=== PATIENT | male | born 1940 | race Caucasian/White ===

== ENCOUNTER 2022-09-19 15:04 | Inpatient (IN) | payer MEDICARE ==
[~2022-09-19] VITALS: Ht 172.7 cm; Wt 59.0 kg
[2022-09-19 16:47] LABS: BASO % 0.3 % (0.0-1.0); EOS % 0.1 % (0.0-3.0); LYMPH # 0.4 10^3/uL (1.5-5.0); LYMPH % 5.5 % (24.0-44.0); MEAN CORPUSCULAR HEMOGLOBIN 27.5 pg (27.0-33.0); MEAN CORPUSCULAR HGB CONC 31.1 g/dl (32.0-36.5); MEAN CORPUSCULAR VOLUME 88.3 fl (80.0-96.0); MONO # 0.7 10^3/uL (0.0-0.8); NEUTROPHILS # 6.8 10^3/uL (1.5-8.5); NEUTROPHILS % 84.7 % (36.0-66.0); PLATELET COUNT, AUTOMATED 260 10^3/uL (150-450); RED BLOOD COUNT 1.71 10^6/uL (4.30-6.10)
[2022-09-19 16:49] LABS: HEMATOCRIT 15.1 % (42.0-52.0); HEMOGLOBIN 4.7 g/dl (13.5-17.5)
[2022-09-19] MEDS ORDERED: PANTOPRAZOLE 40MG VIAL IV ONE (17:50)
[2022-09-19 18:09] LABS: ALBUMIN 2.8 G/DL (3.2-5.2); BILIRUBIN,DIRECT 0.2 MG/DL (<0.4); BILIRUBIN,TOTAL 0.6 MG/DL (0.3-1.2); CALCIUM LEVEL 8.2 MG/DL (8.3-10.6); CK-MB VALUE MASS 4.1 NG/ML (<3.6); CREATININE FOR GFR 2.07 MG/DL (0.70-1.30); GLOMERULAR FILTRATION RATE 33.1 (>35); MB/CK RELATIVE INDEX 1.79 (< OR =4); POTASSIUM SERUM 4.3 MMOL/L (3.5-5.1); THYROID STIMULATING HORMONE 4.005 uIU/ML (0.55-4.78); TOTAL PROTEIN 5.1 G/DL (5.7-8.2)
[2022-09-19 19:22] LABS: PARTIAL THROMBOPLASTIN TIME 26.4 SECONDS (24.8-34.2); PROTHROMBIN TIME 13.4 SECONDS (12.5-14.5)
[2022-09-19 19:32] LABS: CK-MB VALUE MASS 3.7 NG/ML (<3.6)
[2022-09-19 19:34] LABS: MB/CK RELATIVE INDEX 1.67 (< OR =4)
[2022-09-19 20:51] LABS: RSV AMPLIFICATION NEGATIVE (NEGATIVE)
[2022-09-19 21:00] VITALS: BP 132/64
[2022-09-19 21:15] VITALS: BP 126/76
[2022-09-19] MEDS ORDERED: LEVO50TA5 PO (21:17)
[2022-09-19] MEDS ORDERED: HYDR10TAB PO (21:17)
[2022-09-19] MEDS ORDERED: ATOR1TAB19 PO (21:19)
[2022-09-19] MEDS ORDERED: POTA10CA33 PO (21:19)
[2022-09-19] MEDS ORDERED: AMLO1TAB24 PO (21:19)
[2022-09-19] MEDS ORDERED: HOME MED LIST COMPLETE! XX SCH (21:20)
[2022-09-19 22:15] VITALS: BP 154/70
[2022-09-19] MEDS: NS 1,000 ML IV SCH (22:55)
[2022-09-19] MEDS: ATORVASTATIN 20 MG TAB PO SCH (22:55)
[2022-09-19] MEDS ORDERED: SODIUM CHLORIDE 0.9% 500 ML IV ONE (22:55)
[2022-09-20] VITALS (13 sets, daily range): BP systolic 109–150; BP diastolic 56–69
[2022-09-20 05:30] LABS: HEMATOCRIT 22.5 % (42.0-52.0)
[2022-09-20 05:34] LABS: HEMOGLOBIN 7.3 g/dl (13.5-17.5)
[2022-09-20 05:47] LABS: CALCIUM LEVEL 7.8 MG/DL (8.3-10.6); CREATININE FOR GFR 1.86 MG/DL (0.70-1.30); GLOMERULAR FILTRATION RATE 37.4 (>35); POTASSIUM SERUM 3.9 MMOL/L (3.5-5.1)
[2022-09-20 07:00] LABS: HEMATOCRIT 22.5 % (42.0-52.0); HEMOGLOBIN 7.5 g/dl (13.5-17.5)
[2022-09-20] MEDS: NS 1,000 ML IV SCH ×3 (09:29→21:30)
[2022-09-20] MEDS: PANTOPRAZOLE 40MG VIAL IV SCH ×2 (09:30→21:30)
[2022-09-20 13:02] LABS: HEMATOCRIT 25.6 % (42.0-52.0); HEMOGLOBIN 8.6 g/dl (13.5-17.5)
[2022-09-20] MEDS ORDERED: GOLYTELY SOLN 4000 ML BTL PO ONE (16:00)
[2022-09-20 16:41] LABS: HEMATOCRIT 25.8 % (42.0-52.0); HEMOGLOBIN 8.7 g/dl (13.5-17.5)
[2022-09-20] MEDS: ATORVASTATIN 20 MG TAB PO SCH (21:30)
[2022-09-20 22:14] LABS: HEMATOCRIT 26.7 % (42.0-52.0); HEMOGLOBIN 8.9 g/dl (13.5-17.5)
[2022-09-21] VITALS (9 sets, daily range): BP systolic 131–189; BP diastolic 63–86
[2022-09-21] MEDS ORDERED: GOLYTELY SOLN 4000 ML BTL PO SCH (03:00)
[2022-09-21 06:26] LABS: BASO # 0.1 10^3/uL (0.0-0.2); BASO % 0.7 % (0.0-1.0); EOS # 0.2 10^3/uL (0.0-0.5); EOS % 2.9 % (0.0-3.0); HEMATOCRIT 27.3 % (42.0-52.0); HEMOGLOBIN 9.1 g/dl (13.5-17.5); LYMPH # 0.5 10^3/uL (1.5-5.0); LYMPH % 6.5 % (24.0-44.0); MEAN CORPUSCULAR HEMOGLOBIN 29.4 pg (27.0-33.0); MEAN CORPUSCULAR HGB CONC 33.3 g/dl (32.0-36.5); MEAN CORPUSCULAR VOLUME 88.3 fl (80.0-96.0); MONO # 0.7 10^3/uL (0.0-0.8); MONO % 8.8 % (2.0-8.0); NEUTROPHILS # 6.6 10^3/uL (1.5-8.5); NEUTROPHILS % 80.7 % (36.0-66.0); PLATELET COUNT, AUTOMATED 250 10^3/uL (150-450); RED BLOOD COUNT 3.09 10^6/uL (4.30-6.10); WHITE BLOOD COUNT 8.2 10^3/uL (4.0-10.0)
[2022-09-21 06:49] LABS: ALBUMIN 2.5 G/DL (3.2-5.2); CALCIUM LEVEL 7.1 MG/DL (8.3-10.6); CREATININE FOR GFR 1.7 MG/DL (0.70-1.30); GLOMERULAR FILTRATION RATE 41.5 (>35); POTASSIUM SERUM 3.8 MMOL/L (3.5-5.1)
[2022-09-21] MEDS: PANTOPRAZOLE 40MG VIAL IV SCH ×2 (08:50→20:08)
[2022-09-21] MEDS ORDERED: amLODIPine 5 MG TAB PO SCH (09:00)
[2022-09-21] MEDS: POTASSIUM CHLORIDE 10MEQ SR TABLET PO SCH (10:41)
[2022-09-21] MEDS: LEVOTHYROXINE 50MCG TABLET (0.05MG) PO SCH (10:41)
[2022-09-21 11:38] LABS: VENOUS BASE EXCESS -3.5 (-2.0-2.0); VENOUS HCO3 20.3 MEQ/L (23.0-27.0); VENOUS O2 SATURATION 96.2 % (60.0-80.0); VENOUS PARTIAL PRESSURE CO2 32.3 mmHg (38.0-50.0); VENOUS PARTIAL PRESSURE O2 82.5 mmHg (30.0-50.0); VENOUS PH 7.416 UNITS (7.330-7.430); VENOUS STANDARD HCO3 21.5 MEQ/L; VENOUS TOTAL CO2 21.3 MEQ/L (24.0-28.0)
[2022-09-21] MEDS ORDERED: ISOVUE-370 76% 100ML VIAL As Ordered ONE (11:41)
[2022-09-21 11:43] LABS: BASO # 0.1 10^3/uL (0.0-0.2); BASO % 0.8 % (0.0-1.0); EOS # 0.1 10^3/uL (0.0-0.5); EOS % 1.4 % (0.0-3.0); HEMATOCRIT 30.7 % (42.0-52.0); HEMOGLOBIN 10.2 g/dl (13.5-17.5); LYMPH # 0.5 10^3/uL (1.5-5.0); LYMPH % 6.3 % (24.0-44.0); MEAN CORPUSCULAR HEMOGLOBIN 29.1 pg (27.0-33.0); MEAN CORPUSCULAR HGB CONC 33.2 g/dl (32.0-36.5); MEAN CORPUSCULAR VOLUME 87.7 fl (80.0-96.0); MONO # 0.7 10^3/uL (0.0-0.8); MONO % 8.7 % (2.0-8.0); NEUTROPHILS # 6.3 10^3/uL (1.5-8.5); NEUTROPHILS % 82.5 % (36.0-66.0); PLATELET COUNT, AUTOMATED 280 10^3/uL (150-450); WHITE BLOOD COUNT 7.6 10^3/uL (4.0-10.0)
[2022-09-21 11:56] LABS: INR 0.95; PROTHROMBIN TIME 12.9 SECONDS (12.5-14.5)
[2022-09-21 11:57] LABS: PARTIAL THROMBOPLASTIN TIME 26.3 SECONDS (24.8-34.2)
[2022-09-21 12:17] LABS: ALBUMIN 2.7 G/DL (3.2-5.2); BILIRUBIN,TOTAL 1.3 MG/DL (0.3-1.2); CALCIUM LEVEL 7.3 MG/DL (8.3-10.6); CREATININE FOR GFR 1.59 MG/DL (0.70-1.30); GLOMERULAR FILTRATION RATE 44.8 (>35); POTASSIUM SERUM 3.8 MMOL/L (3.5-5.1)
[2022-09-21] MEDS ORDERED: **hydrALAZINE** 10 MG TAB PO SCH (16:00)
[2022-09-21] MEDS ORDERED: ASPIRIN 325 MG TAB PO ONE (16:10)
[2022-09-21 19:45] LABS: CHOLESTEROL RISK RATIO 2.95 (<5); HDL CHOLESTEROL 39.9 MG/DL (>40); LDL CHOLESTEROL 60.1 MG/DL (<100); NON-HDL-C 78.1 MG/DL
[2022-09-21] MEDS: ATORVASTATIN 20 MG TAB PO SCH (20:08)
[2022-09-21 20:58] LABS: HEMOGLOBIN A1c 4.9 % (4.0-6.0)
[2022-09-22 04:22] VITALS: BP 140/67
[2022-09-22 05:17] LABS: BASO # 0.1 10^3/uL (0.0-0.2); EOS # 0.4 10^3/uL (0.0-0.5); EOS % 5.6 % (0.0-3.0); HEMOGLOBIN 9.2 g/dl (13.5-17.5); LYMPH # 0.9 10^3/uL (1.5-5.0); LYMPH % 12.9 % (24.0-44.0); MEAN CORPUSCULAR HEMOGLOBIN 28.8 pg (27.0-33.0); MEAN CORPUSCULAR HGB CONC 32.9 g/dl (32.0-36.5); MEAN CORPUSCULAR VOLUME 87.8 fl (80.0-96.0); MONO # 0.8 10^3/uL (0.0-0.8); NEUTROPHILS # 5.1 10^3/uL (1.5-8.5); NEUTROPHILS % 69.4 % (36.0-66.0); PLATELET COUNT, AUTOMATED 281 10^3/uL (150-450); RED BLOOD COUNT 3.19 10^6/uL (4.30-6.10); WHITE BLOOD COUNT 7.3 10^3/uL (4.0-10.0)
[2022-09-22] MEDS: LEVOTHYROXINE 50MCG TABLET (0.05MG) PO SCH (05:32)
[2022-09-22 05:44] LABS: ALBUMIN 2.4 G/DL (3.2-5.2); CALCIUM LEVEL 7.1 MG/DL (8.3-10.6); CREATININE FOR GFR 1.48 MG/DL (0.70-1.30); GLOMERULAR FILTRATION RATE 48.7 (>35); PHOSPHORUS LEVEL 3.1 MG/DL (2.4-5.1); POTASSIUM SERUM 3.7 MMOL/L (3.5-5.1)
[2022-09-22 07:10] VITALS: BP 147/71
[2022-09-22] MEDS: ASPIRIN 81MG CHEW TABLET PO SCH (08:10)
[2022-09-22] MEDS: PANTOPRAZOLE 40MG VIAL IV SCH ×2 (08:11→20:14)
[2022-09-22] MEDS: POTASSIUM CHLORIDE 10MEQ SR TABLET PO SCH (08:11)
[2022-09-22 12:16] LABS: PERCENT SATURATION 3.7 % (19.7-50.0)
[2022-09-22 12:18] LABS: FOLATE 19.3 NG/ML (>5.4)
[2022-09-22 12:30] VITALS: BP 159/81
[2022-09-22 15:56] VITALS: BP 154/74
[2022-09-22 20:00] VITALS: BP 158/88
[2022-09-22] MEDS: ATORVASTATIN 20 MG TAB PO SCH (20:14)
[2022-09-23] VITALS: BP 141/63
[2022-09-23 04:00] VITALS: BP 168/77
[2022-09-23] MEDS: LEVOTHYROXINE 50MCG TABLET (0.05MG) PO SCH (05:10)
[2022-09-23 05:46] LABS: BASO # 0.1 10^3/uL (0.0-0.2); BASO % 1.2 % (0.0-1.0); EOS # 0.5 10^3/uL (0.0-0.5); EOS % 5.9 % (0.0-3.0); HEMATOCRIT 29.9 % (42.0-52.0); HEMOGLOBIN 9.6 g/dl (13.5-17.5); LYMPH # 0.7 10^3/uL (1.5-5.0); LYMPH % 8.7 % (24.0-44.0); MEAN CORPUSCULAR HEMOGLOBIN 28.4 pg (27.0-33.0); MEAN CORPUSCULAR HGB CONC 32.1 g/dl (32.0-36.5); MEAN CORPUSCULAR VOLUME 88.5 fl (80.0-96.0); MONO # 0.7 10^3/uL (0.0-0.8); NEUTROPHILS # 5.8 10^3/uL (1.5-8.5); NEUTROPHILS % 74.8 % (36.0-66.0); PLATELET COUNT, AUTOMATED 313 10^3/uL (150-450); RED BLOOD COUNT 3.38 10^6/uL (4.30-6.10); WHITE BLOOD COUNT 7.7 10^3/uL (4.0-10.0)
[2022-09-23 06:09] LABS: ALBUMIN 2.5 G/DL (3.2-5.2); CALCIUM LEVEL 7.1 MG/DL (8.3-10.6); CREATININE FOR GFR 1.46 MG/DL (0.70-1.30); GLOMERULAR FILTRATION RATE 49.5 (>35); PHOSPHORUS LEVEL 3.1 MG/DL (2.4-5.1); POTASSIUM SERUM 3.6 MMOL/L (3.5-5.1)
[2022-09-23 08:03] VITALS: BP 168/80
[2022-09-23] MEDS: PANTOPRAZOLE 40MG VIAL IV SCH ×2 (09:46→21:05)
[2022-09-23] MEDS: ASPIRIN 81MG CHEW TABLET PO SCH (09:46)
[2022-09-23] MEDS: POTASSIUM CHLORIDE 10MEQ SR TABLET PO SCH (09:46)
[2022-09-23 11:32] VITALS: BP 154/74
[2022-09-23 16:07] VITALS: BP 146/79
[2022-09-23 19:45] VITALS: BP 137/73
[2022-09-23] MEDS: ATORVASTATIN 20 MG TAB PO SCH (21:05)
[2022-09-24] VITALS (7 sets, daily range): BP systolic 129–155; BP diastolic 65–75
[2022-09-24 05:33] LABS: BASO # 0.1 10^3/uL (0.0-0.2); BASO % 0.8 % (0.0-1.0); EOS # 0.6 10^3/uL (0.0-0.5); EOS % 8.1 % (0.0-3.0); HEMATOCRIT 30.9 % (42.0-52.0); HEMOGLOBIN 9.8 g/dl (13.5-17.5); LYMPH % 12.8 % (24.0-44.0); MEAN CORPUSCULAR HEMOGLOBIN 28.1 pg (27.0-33.0); MEAN CORPUSCULAR HGB CONC 31.7 g/dl (32.0-36.5); MEAN CORPUSCULAR VOLUME 88.5 fl (80.0-96.0); MONO # 0.7 10^3/uL (0.0-0.8); MONO % 8.7 % (2.0-8.0); NEUTROPHILS # 5.2 10^3/uL (1.5-8.5); NEUTROPHILS % 69.2 % (36.0-66.0); PLATELET COUNT, AUTOMATED 338 10^3/uL (150-450); RED BLOOD COUNT 3.49 10^6/uL (4.30-6.10); WHITE BLOOD COUNT 7.5 10^3/uL (4.0-10.0)
[2022-09-24] MEDS: LEVOTHYROXINE 50MCG TABLET (0.05MG) PO SCH (05:36)
[2022-09-24 05:59] LABS: ALBUMIN 2.5 G/DL (3.2-5.2); CALCIUM LEVEL 7.9 MG/DL (8.3-10.6); CREATININE FOR GFR 1.68 MG/DL (0.70-1.30); GLOMERULAR FILTRATION RATE 42.1 (>35); PHOSPHORUS LEVEL 3.1 MG/DL (2.4-5.1); POTASSIUM SERUM 3.8 MMOL/L (3.5-5.1)
[2022-09-24] MEDS: PANTOPRAZOLE 40MG VIAL IV SCH ×2 (08:42→20:36)
[2022-09-24] MEDS: POTASSIUM CHLORIDE 10MEQ SR TABLET PO SCH (08:42)
[2022-09-24] MEDS: ASPIRIN 81MG CHEW TABLET PO SCH (08:42)
[2022-09-24] MEDS ORDERED: CETACAINE SPRAY 5GM As Ordered ONE (17:03)
[2022-09-24] MEDS ORDERED: LIDOCAINE VISCOUS 2% SOLN 15ML UDC As Ordered ONE (17:03)
[2022-09-24] MEDS ORDERED: LIDOCAINE 2% 100MG/5ML SDV (FOR ANES.) As Ordered ONE (18:01)
[2022-09-24] MEDS ORDERED: propofoL 200 MG/20 ML VIAL As Ordered ONE (18:01)
[2022-09-24] MEDS: ATORVASTATIN 20 MG TAB PO SCH (20:36)
[2022-09-25 05:00] VITALS: BP 168/70
[2022-09-25] MEDS: LEVOTHYROXINE 50MCG TABLET (0.05MG) PO SCH (05:50)
[2022-09-25 06:50] LABS: BASO # 0.1 10^3/uL (0.0-0.2); BASO % 0.8 % (0.0-1.0); EOS # 0.4 10^3/uL (0.0-0.5); EOS % 4.9 % (0.0-3.0); HEMATOCRIT 28.1 % (42.0-52.0); HEMOGLOBIN 9.3 g/dl (13.5-17.5); LYMPH # 1.1 10^3/uL (1.5-5.0); LYMPH % 12.7 % (24.0-44.0); MEAN CORPUSCULAR HEMOGLOBIN 29.2 pg (27.0-33.0); MEAN CORPUSCULAR HGB CONC 33.1 g/dl (32.0-36.5); MEAN CORPUSCULAR VOLUME 88.4 fl (80.0-96.0); MONO # 0.7 10^3/uL (0.0-0.8); MONO % 7.6 % (2.0-8.0); NEUTROPHILS # 6.3 10^3/uL (1.5-8.5); NEUTROPHILS % 73.4 % (36.0-66.0); PLATELET COUNT, AUTOMATED 312 10^3/uL (150-450); RED BLOOD COUNT 3.18 10^6/uL (4.30-6.10); WHITE BLOOD COUNT 8.6 10^3/uL (4.0-10.0)
[2022-09-25 07:28] VITALS: BP 161/76
[2022-09-25 07:28] LABS: ALBUMIN 2.5 G/DL (3.2-5.2); CALCIUM LEVEL 7.9 MG/DL (8.3-10.6); CREATININE FOR GFR 1.64 MG/DL (0.70-1.30); GLOMERULAR FILTRATION RATE 43.2 (>35); PHOSPHORUS LEVEL 3.8 MG/DL (2.4-5.1); POTASSIUM SERUM 3.7 MMOL/L (3.5-5.1)
[2022-09-25] MEDS: POTASSIUM CHLORIDE 10MEQ SR TABLET PO SCH (08:20)
[2022-09-25] MEDS: PANTOPRAZOLE 40MG VIAL IV SCH ×2 (08:20→20:57)
[2022-09-25] MEDS: ASPIRIN 81MG CHEW TABLET PO SCH (08:21)
[2022-09-25 16:00] VITALS: BP 151/74
[2022-09-25] MEDS ORDERED: GOLYTELY SOLN 4000 ML BTL PO ONE (18:00)
[2022-09-25 20:00] VITALS: BP 160/84
[2022-09-25] MEDS: ATORVASTATIN 20 MG TAB PO SCH (20:57)
[2022-09-26] VITALS: BP 139/68
[2022-09-26 04:00] VITALS: BP 149/73
[2022-09-26] MEDS ORDERED: GOLYTELY SOLN 4000 ML BTL PO ONE (05:00)
[2022-09-26] MEDS: LEVOTHYROXINE 50MCG TABLET (0.05MG) PO SCH (05:16)
[2022-09-26 05:27] LABS: ALBUMIN 2.4 G/DL (3.2-5.2); CALCIUM LEVEL 7.8 MG/DL (8.3-10.6); CREATININE FOR GFR 1.55 MG/DL (0.70-1.30); GLOMERULAR FILTRATION RATE 46.2 (>35); PHOSPHORUS LEVEL 2.9 MG/DL (2.4-5.1); POTASSIUM SERUM 3.8 MMOL/L (3.5-5.1)
[2022-09-26 07:35] VITALS: BP 154/76
[2022-09-26] MEDS: PANTOPRAZOLE 40MG VIAL IV SCH (09:09)
[2022-09-26] MEDS: POTASSIUM CHLORIDE 10MEQ SR TABLET PO SCH (09:10)
[2022-09-26] MEDS: ASPIRIN 81MG CHEW TABLET PO SCH (09:10)
[2022-09-26] MEDS ORDERED: propofoL 200 MG/20 ML VIAL As Ordered ONE (12:07)
[2022-09-26] MEDS ORDERED: LIDOCAINE 2% 100MG/5ML SDV (FOR ANES.) As Ordered ONE (12:07)
[2022-09-26 14:07] VITALS: BP 148/72
[2022-09-26] MEDS ORDERED: ATOR1TAB21 PO (16:06)
[2022-09-26] MEDS ORDERED: ASPI81CH8 PO (16:06)
[2022-09-26] MEDS ORDERED: PANT40TA29 PO (16:06)
== END 2022-09-26 17:01 | disposition home or self-care (01) | DRG 377 ==
LOC: M ED 15:04 → M ED INP 22:34 → ENRESERV 09-20 17:07 → M MSPAV 09-20 20:40 → M PCU 09-21 11:37
PROVIDERS: ADMIT Internal Medicine; ATTEND Internal Medicine Nephrology
PROC: 30233N1 Transfusion of Nonautologous Red Blood Cells into Peripheral Vein, Percutaneous Approach (ICD-10-PCS; principal; 2022-09-19)
PROC: B246ZZZ Ultrasonography of Right and Left Heart (ICD-10-PCS; 2022-09-24)
PROC: 0DJ08ZZ Inspection of Upper Intestinal Tract, Via Natural or Artificial Opening Endoscopic (ICD-10-PCS; 2022-09-26)
PROC: 0DJD8ZZ Inspection of Lower Intestinal Tract, Via Natural or Artificial Opening Endoscopic (ICD-10-PCS; 2022-09-26)
DX: K92.2 Gastrointestinal hemorrhage, unspecified (principal); I21.A1 Myocardial infarction type 2; I63.89 Other cerebral infarction; D62 Acute posthemorrhagic anemia; N17.9 Acute kidney failure, unspecified; I13.0 Hypertensive heart and chronic kidney disease with heart failure and stage 1 through stage 4 chronic kidney disease, or unspecified chronic kidney disease; I50.32 Chronic diastolic (congestive) heart failure; I25.10 Atherosclerotic heart disease of native coronary artery without angina pectoris; K57.30 Diverticulosis of large intestine without perforation or abscess without bleeding; R41.0 Disorientation, unspecified; K20.90 Esophagitis, unspecified without bleeding; D50.9 Iron deficiency anemia, unspecified; K64.0 First degree hemorrhoids; N18.30 Chronic kidney disease, stage 3 unspecified; E03.9 Hypothyroidism, unspecified; Z90.49 Acquired absence of other specified parts of digestive tract; Z20.822 Contact with and (suspected) exposure to COVID-19; Z79.890 Hormone replacement therapy; Z79.899 Other long term (current) drug therapy; Z86.73 Personal history of transient ischemic attack (TIA), and cerebral infarction without residual deficits; I08.0 Rheumatic disorders of both mitral and aortic valves